=== PATIENT | male | born 1995 | race Hispanic/Latino ===

== ENCOUNTER 2017-12-31 13:02 | Inpatient (IN) | payer MEDICAID ==
[~2017-12-31] VITALS: Ht 180.3 cm; Wt 120.2 kg
[~2017-12-31 13:02] MED LIST: WELLBUTRIN SR150 MG PO
--- NOTE | 2017-12-31 13:02 | NUR ---
PT TO ROOM VIA EMS STRETCHER. PT DENIES ANY PAIN OR WEAKNESS AT THIS TIME. PER PT HE HAS BEEN TRANSITIONING TO A MALE FOR THE PAST 8 MONTHS AND IS TAKING TESTOSTERONE INJECTIONS.
--- NOTE | 2017-12-31 13:11 | NUR ---
CALL PLACED TO POISON CONTROL CENTER. ADVISED TO OBTAIN CMP, TYLENOL LEVEL, EKG. WATCH FOR ANY ELEVATED LFT'S IN CMP (ASKED TO CALL CENTER BACK TO FURTHER EVAL), QRS INTERVAL >100 MILISECONDS; SUPPORTIVE CARE FOR PT. INFORMATION RELAYED TO DR FLORES.
[2017-12-31 14:07] LABS: HEMATOCRIT 41.8 % (39.0-50.0); HEMOGLOBIN 13.4 g/dl (14.0-18.0); IMMATURE GRANULOCYTES 0.3 % (0.0-5.0); MEAN CORPUSCULAR HGB CONC 32.1 g/L CALC (32.0-36.0); NEUT# 3.47 thou/uL (1.82-7.42); RED BLOOD COUNT 5.16 mill/uL (4.70-6.10); RED CELL DISTRI WIDTH 15.7 % (11.5-15.5)
--- NOTE | 2017-12-31 14:20 | NUR ---
PT RESTING COMFORTABLY ON STRETCHER SUPINE WITH EYES CLOSED. GIVEN PO JUICE AND TOLERATING WELL.
[2017-12-31 14:22] LABS: ALBUMIN 3.8 g/dL (3.2-5.0); ALKALINE PHOSPHATASE 59 u/l (38-126); ANION GAP 14 (6-22 (CALC)); BILIRUBIN, TOTAL 0.3 mg/dL (0.0-1.4); BUN 14 mg/dL (9-20); BUN/CREATININE RATIO 21 (12-20 (CALC)); CARBON DIOXIDE 26 mmol/l (22-30); CHLORIDE 104 mmol/l (95-108); CREATININE 0.7 mg/dL (0.7-1.3); GFR > 60 ML/MIN (>=60 (CALC)); GFR FOR AFR.AMER. > 60 ML/MIN (>=60 (CALC)); SGOT/AST 21 u/l (17-59); SGPT/ALT 36 u/l (21-72); SODIUM 141 mmol/l (137-146); TOTAL PROTEIN 6.6 g/dL (6.3-8.2)
[2017-12-31 14:23] LABS: ETHYL ALCOHOL 0 mg/dl (0-30)
[2017-12-31 15:07] LABS: BARBITURATES NEGATIVE (NEGATIVE); COCAINE NEGATIVE (NEGATIVE); METHADONE NEGATIVE (NEGATIVE); OXCYCODONE NEGATIVE (NEGATIVE); TETRAHYDROCANNABIONOL NEGATIVE (NEGATIVE); TRICYLIC ANTIDEPRESSANTS NEGATIVE (NEGATIVE)
--- NOTE | 2017-12-31 15:15 | NUR ---
CALLED POISON CONTROL AND SPOKE WITH KRISTYN. FOLLOWING RECOMMENDATIONS. RECOMMENDED TX FOR TOXIC TYLENOL LEVEL OF 30.RECOMMEND IV ACETADIL OR PO MUCOMIST. REPORTS TX IS 21H LONG. REPEAT TYLENOL LEVEL AND LFT AT 19H AND RETURN CALL TO POISON CONTROL TO RELATE LAB RESULTS.DR FLORES INFORMED OF RECOMENDATIONS.
--- NOTE | 2017-12-31 16:10 | NUR ---
PT AND MOTHER APRISED OF TX FOR TYLENOL LEVEL AND EM ACT WOULD BE DELAYED UNTIL MEDICALLY CLEARED. PT PLEASANT AND COOPERATIVE. NO FURTHER DISCUSSION OF SUICIDE ATTEMPT
--- NOTE | 2017-12-31 16:14 | NUR ---
INITIATED IV ACETADOTE ORDERED. PT TOLERATING WELL. GIVEN PO JUICE. PT EXPRESSES THAT ANXIETY HAS KEPT HIM FROM GETTING HELP FOR HIS DEPRESSION.
--- NOTE | 2017-12-31 16:54 | NUR ---
CALLED REPORT TO HOPE CORTEZ RN AND UPDATED ON PIOC INCLUDING ACETAMINOPHEN LEVEL AND LFT REDRAW RECOMENDED BY POSION CONTROL.
--- NOTE | 2017-12-31 17:02 | NUR ---
RECVD REPORT FROM [facility] IN ED. DR MATHIAS IN ICU WAITING ON PT.
--- NOTE | 2017-12-31 17:15 | NUR ---
PT TRANSPORTED TO ICU IN STABLE CONDITION
[2017-12-31 17:20] VITALS: BP 161/86
--- NOTE | 2017-12-31 17:20 | NUR ---
PT ARRIVED TO RM#3 IN ICU VIA STRETCHER FROM ED. DR MATHIAS AT BEDSIDE FOR ASSESSMENT AND TO DISCUSS PLAN OF CARE. PT IS FEMALE PER PT TAKING TESTERONE FOR 8 MONTHS TO AID IN TRANSGENDER TRANSITION. PT ALERT & ORIENT X3, ABLE TO MAKE NEEDS KNOWN. AFEBRILE T- 97.9, HR 102, ST ON TELEMETRY, PT DENIES CHEST PAIN, SOB OR DISTRESS AT THIS TIME. SA02@99% RA, RR- 17, LS CLEAR THROUGHOUT. ABDOMEN SOFT, NON-TENDER, BSX4 ACTIVE, PT STATES LAST BM 12-30-17. B/P- 161/86. PT REPORTS N/V WITH EMESIS GREEN 100ML. PT WEIGHS 264.9LBS ON BED SCALE. STATES HT 5'11. PT DENIES PAIN AT THIS TIME. MOM AT BEDSIDE. 20G TO RAC INFUSING ACETADOTE @125ML/HR, NO S/S OF INFILTRATION OR REDNESS NOTED.BED IN LOWEST POSITION, CALL LIGHT IN REACH. MOM REMAINS AT BEDSIDE. WILL MONITOR.
[2017-12-31 19:15] VITALS: BP 166/78
--- NOTE | 2017-12-31 19:30 | NUR ---
PT IN BED A/O X3, RESPIRATIONS EVEN AND UNLABORED ON RA, PT HAS BEEN EM ACTED DUE TO TYLENOL OVERDOSE. IS ON ACETADOTE GTT AT 125ML/HR, AND NS AT 100ML/HR, TO RAC #20, SITE IS SLIGHTLY ADEMATOUS AND ADMITS TO PAIN WHEN TOUCHED, IV TO RAC DC'D WITH CATH TIP INTACT, NEW #22 STARTED TO LH ON 2ND ATTEMPT TOLERATED WELL, IV FLUIDS AND ACETADOTE INFUSING WITH NO COMPLICATIONS. SITTER AT PT'S SIDE. PO FLUIDS IN REACH. C/O NAUSEA, EMESIS BAG PROVIDED. CALL LIGHT IN REACH, WILL CONTINUE TO MONITOR.
[2017-12-31 20:30] VITALS: BP 167/80
[2017-12-31 21:30] VITALS: BP 131/51
--- NOTE | 2017-12-31 21:41 | NUR ---
RESTING ON LEFT SIDE WITH EYES CLOSED, RESPIRATIONS EVEN AND UNLABORED. IV FLUIDS AND ACETADOTE INFUSING TO LH WITH NO COMPLICATIONS. CALL LIGHT IN REACH, SITTER AT BED SIDE.
--- NOTE | 2017-12-31 21:52 | NUR ---
ZOFRAN 4MG IV ADMINISTERED AT THIS TIME FOR C/O NAUSEA.
[2017-12-31 23:15] VITALS: BP 146/65
--- NOTE | 2018-01-01 | NUR ---
OOB TO BSC WITH SITTER AT PT'S BED SIDE, NO CONCERNS VOICED. 3RD BAG OF ACETADOTE INFUSING TO LH WITH NO COMPLICATIONS. CALL LIGHT IN REACH.
[2018-01-01 00:15] VITALS: BP 137/71
--- NOTE | 2018-01-01 02:00 | NUR ---
RESTING ON RIGHT SIDE WITH EYES CLOSED, RESPIRATIONS EVEN AND UNLABORED. NS AND ACETADOTE INFUSING TO LH WITH NO COMPLICATIONS, SITTER AT BED SIDE. CALL LIGHT IN REACH.
[2018-01-01 02:15] VITALS: BP 127/62
[2018-01-01 04:15] VITALS: BP 144/73
--- NOTE | 2018-01-01 05:38 | NUR ---
MORNING LABS DRAWN AT THIS TIME, TOLERATED WELL.
[2018-01-01 05:45] LABS: HEMOGLOBIN 13.6 g/dl (14.0-18.0); IMMATURE GRANULOCYTES 0.3 % (0.0-5.0); MEAN CELL VOLUME 80.8 fL CALC (80.0-100.0); MEAN CORPUSCULAR HGB 26.2 pG CALC (26.0-32.0); MEAN CORPUSCULAR HGB CONC 32.4 g/L CALC (32.0-36.0); NEUT# 6.53 thou/uL (1.82-7.42); RED BLOOD COUNT 5.2 mill/uL (4.70-6.10); RED CELL DISTRI WIDTH 15.6 % (11.5-15.5)
[2018-01-01 05:56] LABS: ANION GAP 13 (6-22 (CALC)); BUN 7 mg/dL (9-20); BUN/CREATININE RATIO 13 (12-20 (CALC)); CARBON DIOXIDE 27 mmol/l (22-30); CHLORIDE 105 mmol/l (95-108); CREATININE 0.6 mg/dL (0.7-1.3); GFR > 60 ML/MIN (>=60 (CALC)); GFR FOR AFR.AMER. > 60 ML/MIN (>=60 (CALC)); POTASSIUM 3.5 mmol/l (3.5-5.1); SODIUM 142 mmol/l (137-146)
[2018-01-01 05:57] LABS: ALBUMIN 3.5 g/dL (3.2-5.0); BILIRUBIN, TOTAL 0.3 mg/dL (0.0-1.4); TOTAL PROTEIN 6.3 g/dL (6.3-8.2)
[2018-01-01 06:10] VITALS: BP 151/75
[2018-01-01 07:15] VITALS: BP 139/60
--- NOTE | 2018-01-01 07:58 | NUR ---
PT AWAKE, ALERT, ORIENTED. PT UP TO BSC NEEDED. SITTER AT BEDSIDE. ASSESSMENT NEGATIVE, LUNGS CLEAR, SKIN INTACT. PT STATES NO BM SINCE FRIDAY, BUT THAT IS NORMAL FOR PERSON. PT OFFERED MILK OF MAGNESIA, DID NOT WANT NOW.
[2018-01-01 09:15] VITALS: BP 157/76
--- NOTE | 2018-01-01 09:41 | NUR ---
PT HAS BEEN MEDICALLY CLEARED BY DR MATHIAS, AWAITING NOW FINAL PAPERWORK PRIOR TO CALLING PHYSIOTHERAPY ASSISTANT'S OFFICE.
--- NOTE | 2018-01-01 11:32 | NUR ---
MEDICAL CLEARANCE. 'S OFFICE CALLED FOR TRANSPORT TO [facility].
--- NOTE | 2018-01-01 12:03 | NUR ---
PT LEAVES AMBULATORY AT THIS TIME FOR [facility] [place].
== END 2018-01-01 12:16 | DRG 918 ==
LOC: ED 13:02 → EDSEX 13:02 → ED 13:42 → ED-I 15:36 → ED 15:51 → ICU 15:52
PROVIDERS: Emergency Medicine; Internal Medicine; ADMIT Internal Medicine Nephrology; ATTEND Internal Medicine Nephrology
DX: T39.1X2A Poisoning by 4-Aminophenol derivatives, intentional self-harm, initial encounter (principal); F32.9 Major depressive disorder, single episode, unspecified; F64.8 Other gender identity disorders; F43.10 Post-traumatic stress disorder, unspecified; F41.9 Anxiety disorder, unspecified; Z91.5 Personal history of self-harm
CPT/HCPCS: J1650

== ENCOUNTER 2018-06-18 18:41 | Emergency (ER) | payer MEDICAID ==
[~2018-06-18] VITALS: Ht 180.3 cm; Wt 120.0 kg
[2018-06-18 19:12] LABS: HEMATOCRIT 40.1 % (39.0-50.0); HEMOGLOBIN 12.9 g/dl (14.0-18.0); IMMATURE GRANULOCYTES 0.4 % (0.0-5.0); MEAN CORPUSCULAR HGB 26.4 pG CALC (26.0-32.0); MEAN CORPUSCULAR HGB CONC 32.2 g/L CALC (32.0-36.0); NEUT# 3.68 thou/uL (1.82-7.42); RED BLOOD COUNT 4.89 mill/uL (4.70-6.10); RED CELL DISTRI WIDTH 14.9 % (11.5-15.5)
[2018-06-18 19:42] LABS: URINE BILIRUBIN - DIPSTICK NEGATIVE (NEGATIVE); URINE BLOOD DIPSTICK TRACE-INTACT (NEGATIVE); URINE COLOR YELLOW; URINE GLUCOSE - DIPSTICK NEGATIVE (NEGATIVE); URINE KETONE NEGATIVE (NEGATIVE); URINE LEUK ESTERASE NEGATIVE (NEGATIVE); URINE NITRITE - DIPSTICK NEGATIVE (Negative); URINE PH 6.5 (4.5-8.0); URINE PROTEIN - DIPSTICK 100 mg/dL (NEG-TRACE); URINE SPECIFIC GRAVITY >=1.030
[2018-06-18 19:46] LABS: BARBITURATES NEGATIVE (NEGATIVE); COCAINE NEGATIVE (NEGATIVE); METHADONE NEGATIVE (NEGATIVE); TETRAHYDROCANNABIONOL NEGATIVE (NEGATIVE); TRICYLIC ANTIDEPRESSANTS NEGATIVE (NEGATIVE)
[2018-06-18 19:47] LABS: OXCYCODONE NEGATIVE (NEGATIVE)
[2018-06-18 19:50] LABS: URINE AMORPH SEDIMENT FEW hpf (NONE-FER); URINE RBC 0-2 RBC/hpf (0-5); URINE WBC 0-2 WBC/hpf (0-5)
[2018-06-18 19:52] LABS: ANION GAP 15 (6-22 (CALC)); BILIRUBIN, TOTAL 0.4 mg/dL (0.0-1.4); BUN 11 mg/dL (9-20); BUN/CREATININE RATIO 16 (12-20 (CALC)); CARBON DIOXIDE 25 mmol/l (22-30); CHLORIDE 103 mmol/l (95-108); CREATININE 0.7 mg/dL (0.7-1.3); GFR > 60 ML/MIN (>=60 (CALC)); GFR FOR AFR.AMER. > 60 ML/MIN (>=60 (CALC)); POTASSIUM 3.9 mmol/l (3.5-5.1); SGOT/AST 28 u/l (17-59); SODIUM 140 mmol/l (137-146)
[2018-06-18 19:53] LABS: ALBUMIN 4.8 g/dL (3.2-5.0); ALKALINE PHOSPHATASE 78 u/l (38-126); ETHYL ALCOHOL 0 mg/dl (0-30); TOTAL PROTEIN 7.8 g/dL (6.3-8.2)
[2018-06-18 22:36] VITALS: BP 140/95
== END 2018-06-18 22:15 | disposition designated cancer center or children's hospital (05) ==
LOC: ED 18:41
PROVIDERS: Family Medicine
DX: S11.91XA Laceration without foreign body of unspecified part of neck, initial encounter (principal); F64.9 Gender identity disorder, unspecified; F43.10 Post-traumatic stress disorder, unspecified; F41.9 Anxiety disorder, unspecified; F31.9 Bipolar disorder, unspecified; X78.9XXA Intentional self-harm by unspecified sharp object, initial encounter; Z91.5 Personal history of self-harm

== ENCOUNTER 2019-09-05 15:37 | Emergency (ER) | payer MEDICAID ==
[2019-09-05 16:19] LABS: URINE BLOOD DIPSTICK TRACE-INTACT (NEGATIVE); URINE COLOR YELLOW; URINE GLUCOSE - DIPSTICK NEGATIVE (NEGATIVE); URINE KETONE TRACE mg/dL (NEGATIVE); URINE LEUK ESTERASE NEGATIVE (NEGATIVE); URINE NITRITE - DIPSTICK NEGATIVE (Negative); URINE PROTEIN - DIPSTICK 30 mg/dL (NEG-TRACE); URINE SPECIFIC GRAVITY >=1.030
[2019-09-05 16:21] LABS: URINE BILIRUBIN - DIPSTICK SMALL (NEGATIVE)
[2019-09-05 16:28] LABS: URINE TRANSITIONAL EPI. CELLS FEW hpf
[2019-09-05] MEDS ORDERED: ZOFRAN4 MG/TAB PO ×2 (17:16)
[2019-09-05 17:28] VITALS: BP 162/83
== END 2019-09-05 17:27 | disposition home or self-care (01) ==
LOC: ED 15:37
DX: K59.00 Constipation, unspecified (principal)

== ENCOUNTER 2019-10-15 20:51 | Emergency (ER) | payer MEDICAID ==
[~2019-10-15] VITALS: Ht 180.3 cm; Wt 114.0 kg
[~2019-10-15 20:51] MED LIST changes: +ZOFRAN4 MG/TAB PO
[2019-10-15 23:54] LABS: HEMOGLOBIN 12.3 g/dl (14.0-18.0); IMMATURE GRANULOCYTES 0.4 % (0.0-5.0); MEAN CELL VOLUME 83.5 fL CALC (80.0-100.0); MEAN CORPUSCULAR HGB 27.8 pG CALC (26.0-32.0); MEAN CORPUSCULAR HGB CONC 33.2 g/dL CAL (32.0-36.0); NEUT# 8.37 thou/uL (1.82-7.42); RED BLOOD COUNT 4.43 mill/uL (4.70-6.10); RED CELL DISTRI WIDTH 13.2 % (11.5-15.5)
[2019-10-16 00:08] LABS: ALBUMIN 4.2 g/dL (3.2-5.0); ALKALINE PHOSPHATASE 86 u/l (38-126); ANION GAP 10 (6-22 (CALC)); BILIRUBIN, TOTAL 0.4 mg/dL (0.0-1.4); BUN 9 mg/dL (9-20); BUN/CREATININE RATIO 16 (12-20 (CALC)); CARBON DIOXIDE 25 mmol/l (22-30); CHLORIDE 101 mmol/l (95-108); CREATININE 0.6 mg/dL (0.7-1.3); ETHYL ALCOHOL 0 mg/dl (0-30); GFR > 60 ML/MIN (>=60 (CALC)); GFR FOR AFR.AMER. > 60 ML/MIN (>=60 (CALC)); SGOT/AST 24 u/l (17-59); SODIUM 133 mmol/l (137-146); TOTAL PROTEIN 7.1 g/dL (6.3-8.2)
[2019-10-16 01:19] VITALS: BP 153/86
[2019-10-16 01:27] LABS: URINE BILIRUBIN - DIPSTICK NEGATIVE (NEGATIVE); URINE BLOOD DIPSTICK NEGATIVE (NEGATIVE); URINE COLOR YELLOW; URINE GLUCOSE - DIPSTICK NEGATIVE (NEGATIVE); URINE KETONE NEGATIVE (NEGATIVE); URINE LEUK ESTERASE NEGATIVE (NEGATIVE); URINE NITRITE - DIPSTICK NEGATIVE (Negative); URINE PROTEIN - DIPSTICK NEGATIVE (NEG-TRACE); URINE SPECIFIC GRAVITY 1.015; URINE UROBILINOGEN - DIPSTICK 0.2 E.U./dL (0.2)
== END 2019-10-16 00:40 | disposition home or self-care (01) ==
LOC: ED 20:51
PROVIDERS: Emergency Medicine
DX: F43.22 Adjustment disorder with anxiety (principal); Z87.890 Personal history of sex reassignment

== ENCOUNTER 2019-10-21 21:17 | Emergency (ER) | payer MEDICAID ==
[~2019-10-21] VITALS: Ht 180.3 cm; Wt 250.0 kg
[2019-10-21 23:42] LABS: IMMATURE GRANULOCYTES 0.4 % (0.0-5.0); MEAN CELL VOLUME 84.7 fL CALC (80.0-100.0); MEAN CORPUSCULAR HGB 27.5 pG CALC (26.0-32.0); MEAN CORPUSCULAR HGB CONC 32.4 g/dL CAL (32.0-36.0); NEUT# 6.69 thou/uL (1.82-7.42); RED BLOOD COUNT 4.37 mill/uL (4.70-6.10); RED CELL DISTRI WIDTH 13.6 % (11.5-15.5)
[2019-10-22 00:10] LABS: ALBUMIN 4.6 g/dL (3.2-5.0); ALKALINE PHOSPHATASE 74 u/l (38-126); ANION GAP 11 (6-22 (CALC)); BILIRUBIN, TOTAL 0.3 mg/dL (0.0-1.4); BUN 11 mg/dL (9-20); BUN/CREATININE RATIO 18 (12-20 (CALC)); CARBON DIOXIDE 25 mmol/l (22-30); CHLORIDE 102 mmol/l (95-108); CREATININE 0.6 mg/dL (0.7-1.3); ETHYL ALCOHOL 0 mg/dl (0-30); GFR > 60 ML/MIN (>=60 (CALC)); GFR FOR AFR.AMER. > 60 ML/MIN (>=60 (CALC)); POTASSIUM 3.7 mmol/l (3.5-5.1); SGOT/AST 23 u/l (17-59); SODIUM 135 mmol/l (137-146); TOTAL PROTEIN 7.2 g/dL (6.3-8.2)
[2019-10-22 00:48] VITALS: BP 150/81
[2019-10-22 01:08] LABS: URINE BILIRUBIN - DIPSTICK NEGATIVE (NEGATIVE); URINE BLOOD DIPSTICK NEGATIVE (NEGATIVE); URINE COLOR YELLOW; URINE GLUCOSE - DIPSTICK NEGATIVE (NEGATIVE); URINE KETONE NEGATIVE (NEGATIVE); URINE LEUK ESTERASE SMALL (NEGATIVE); URINE NITRITE - DIPSTICK NEGATIVE (Negative); URINE PROTEIN - DIPSTICK NEGATIVE (NEG-TRACE); URINE SPECIFIC GRAVITY 1.025
[2019-10-22 01:11] LABS: URINE SQUAMOUS EPITHELIAL CELL FEW EPI/hpf (0-FEW)
== END 2019-10-22 01:39 | disposition designated cancer center or children's hospital (05) ==
LOC: ED 21:17
PROVIDERS: Family Medicine
DX: F22 Delusional disorders (principal); R44.3 Hallucinations, unspecified; F32.9 Major depressive disorder, single episode, unspecified

== ENCOUNTER 2019-11-15 06:38 | Emergency (ER) | payer MEDICAID ==
[~2019-11-15] VITALS: Ht 180.3 cm; Wt 113.0 kg
[2019-11-15] MEDS ORDERED: LEXAPRO10 MG PO (07:03)
[2019-11-15] MEDS ORDERED: LISINOPRIL10 MG PO (07:04)
[2019-11-15 07:20] LABS: HEMATOCRIT 40.5 % (39.0-50.0); HEMOGLOBIN 12.8 g/dl (14.0-18.0); IMMATURE GRANULOCYTES 0.5 % (0.0-5.0); MEAN CELL VOLUME 85.6 fL CALC (80.0-100.0); MEAN CORPUSCULAR HGB 27.1 pG CALC (26.0-32.0); MEAN CORPUSCULAR HGB CONC 31.6 g/dL CAL (32.0-36.0); NEUT# 6.72 thou/uL (1.82-7.42); RED BLOOD COUNT 4.73 mill/uL (4.70-6.10); RED CELL DISTRI WIDTH 13.2 % (11.5-15.5)
[2019-11-15 07:24] LABS: URINE BILIRUBIN - DIPSTICK NEGATIVE (NEGATIVE); URINE BLOOD DIPSTICK NEGATIVE (NEGATIVE); URINE COLOR YELLOW; URINE GLUCOSE - DIPSTICK NEGATIVE (NEGATIVE); URINE KETONE NEGATIVE (NEGATIVE); URINE LEUK ESTERASE TRACE (NEGATIVE); URINE NITRITE - DIPSTICK NEGATIVE (Negative); URINE PROTEIN - DIPSTICK NEGATIVE (NEG-TRACE); URINE SPECIFIC GRAVITY 1.015; URINE UROBILINOGEN - DIPSTICK 0.2 E.U./dL (0.2)
[2019-11-15 08:34] LABS: ALBUMIN 4.5 g/dL (3.2-5.0); ALKALINE PHOSPHATASE 85 u/l (38-126); ANION GAP 13 (6-22 (CALC)); BILIRUBIN, TOTAL 0.4 mg/dL (0.0-1.4); BUN 8 mg/dL (9-20); BUN/CREATININE RATIO 16 (12-20 (CALC)); CARBON DIOXIDE 26 mmol/l (22-30); CHLORIDE 100 mmol/l (95-108); CREATININE 0.5 mg/dL (0.7-1.3); GFR > 60 ML/MIN (>=60 (CALC)); GFR FOR AFR.AMER. > 60 ML/MIN (>=60 (CALC)); SGOT/AST 26 u/l (17-59); SODIUM 136 mmol/l (137-146); TOTAL PROTEIN 7.7 g/dL (6.3-8.2)
[2019-11-15 12:22] VITALS: BP 140/72
== END 2019-11-15 12:21 | disposition short-term general hospital (02) ==
LOC: ED 06:38
PROVIDERS: Family Medicine
DX: F29 Unspecified psychosis not due to a substance or known physiological condition (principal); R07.9 Chest pain, unspecified; F31.9 Bipolar disorder, unspecified; F41.9 Anxiety disorder, unspecified; F43.10 Post-traumatic stress disorder, unspecified

== ENCOUNTER 2019-11-18 21:03 | Emergency (ER) | payer MEDICAID ==
[~2019-11-18] VITALS: Ht 180.3 cm; Wt 114.8 kg
[~2019-11-18 21:03] MED LIST changes: +LEXAPRO10 MG PO; +LISINOPRIL10 MG PO
[2019-11-18 22:03] LABS: HEMATOCRIT 39.2 % (39.0-50.0); HEMOGLOBIN 12.4 g/dl (14.0-18.0); IMMATURE GRANULOCYTES 0.4 % (0.0-5.0); MEAN CELL VOLUME 86.2 fL CALC (80.0-100.0); MEAN CORPUSCULAR HGB 27.3 pG CALC (26.0-32.0); MEAN CORPUSCULAR HGB CONC 31.6 g/dL CAL (32.0-36.0); NEUT# 7.88 thou/uL (1.82-7.42); RED BLOOD COUNT 4.55 mill/uL (4.70-6.10); RED CELL DISTRI WIDTH 13.5 % (11.5-15.5)
[2019-11-18 22:04] LABS: URINE BILIRUBIN - DIPSTICK NEGATIVE (NEGATIVE); URINE BLOOD DIPSTICK NEGATIVE (NEGATIVE); URINE COLOR YELLOW; URINE GLUCOSE - DIPSTICK NEGATIVE (NEGATIVE); URINE KETONE NEGATIVE (NEGATIVE); URINE LEUK ESTERASE NEGATIVE (NEGATIVE); URINE NITRITE - DIPSTICK NEGATIVE (Negative); URINE PH 6.5 (4.5-8.0); URINE PROTEIN - DIPSTICK NEGATIVE (NEG-TRACE); URINE UROBILINOGEN - DIPSTICK 0.2 E.U./dL (0.2)
[2019-11-18 22:16] LABS: ALBUMIN 4.5 g/dL (3.2-5.0); ALKALINE PHOSPHATASE 75 u/l (38-126); ANION GAP 12 (6-22 (CALC)); BILIRUBIN, TOTAL 0.3 mg/dL (0.0-1.4); BUN 11 mg/dL (9-20); BUN/CREATININE RATIO 19 (12-20 (CALC)); CARBON DIOXIDE 26 mmol/l (22-30); CHLORIDE 100 mmol/l (95-108); CREATININE 0.6 mg/dL (0.7-1.3); ETHYL ALCOHOL 0 mg/dl (0-30); GFR > 60 ML/MIN (>=60 (CALC)); GFR FOR AFR.AMER. > 60 ML/MIN (>=60 (CALC)); MAGNESIUM 1.9 mg/dL (1.6-2.3); POTASSIUM 3.2 mmol/l (3.5-5.1); SGOT/AST 29 u/l (17-59); SODIUM 135 mmol/l (137-146); TOTAL PROTEIN 7.7 g/dL (6.3-8.2)
[2019-11-18 23:35] VITALS: BP 140/84
== END 2019-11-18 23:35 | disposition designated cancer center or children's hospital (05) ==
LOC: ED 21:03
PROVIDERS: Family Medicine
DX: R45.851 Suicidal ideations (principal); F31.9 Bipolar disorder, unspecified; F43.10 Post-traumatic stress disorder, unspecified; F41.9 Anxiety disorder, unspecified